=== PATIENT | male | born 1990 | race Two or more races ===

== ENCOUNTER 2022-02-11 04:06 | Emergency (ER) | payer SELFPAY ==
[~2022-02-11] VITALS: Ht 172.7 cm; Wt 86.2 kg
[2022-02-11] MEDS ORDERED: TDAP DIPH,PERTUSS,TET VAC/PF 0.5 ML DISP.SYRIN IM ONE ×2 (04:30→04:31)
[2022-02-11] MEDS ORDERED: LIDOCAINE 2%-EPI 1:100,000 20 ML VIAL TP ONE (04:30)
--- NOTE | 2022-02-11 04:40 | NUR ---
Patient is a/ox4, NAD noted
--- NOTE | 2022-02-11 04:59 | NUR ---
Patient discharged to home in stable condition with girlfriend taking patient home. Written and verbal after care instructions given. Patient verbalizes understanding of instructions. Stressed follow up or return to ER for worsening s/s.
[2022-02-11 05:00] VITALS: BP 125/77
== END 2022-02-11 05:20 | disposition home or self-care (01) ==
LOC: ER 05:17
DX: S01.01XA Laceration without foreign body of scalp, initial encounter (principal); X58.XXXA Exposure to other specified factors, initial encounter; Y92.89 Other specified places as the place of occurrence of the external cause
CPT/HCPCS: 90715; A4663

== ENCOUNTER 2022-02-25 16:26 | Emergency (ER) | payer MEDICAID ==
[~2022-02-25] VITALS: Ht 170.2 cm; Wt 86.2 kg
--- NOTE | 2022-02-25 18:01 | NUR ---
PT WAS EVALUATED BY DR LAINEZ. PT WAS D/C'd TO HOME. D/C INSTRUCTIONS GIVEN TO THE PT BY DR LAINEZ.
[2022-02-25 18:03] VITALS: BP 132/78
== END 2022-02-25 18:03 | disposition home or self-care (01) ==
LOC: ER 16:41
DX: S01.01XD Laceration without foreign body of scalp, subsequent encounter (principal); X58.XXXD Exposure to other specified factors, subsequent encounter
CPT/HCPCS: A4663